=== PATIENT | male | born 1995 | race Caucasian/White ===

== ENCOUNTER 2024-07-15 13:22 | Emergency (ER) | payer MEDICAID, SELFPAY ==
--- NOTE | 2024-07-15 13:32 | EDNOTE_ITS ---
ED Medical Clearance RME/HPI General Stated complaint: MEDICAL CLEARANCE Time Seen by Provider: 07/15/24 13:27 Arrival date/time: 07/15/24 13:22 RME / HPI RME / HPI Narrative: 29-year-old male patient came in for evaluation regarding medical clearance. Patient was brought in today for medical clearance, to rule out tuberculosis. According to the patient has been having on and off cough with blood-streaked sputum for the last 3 months. Patient denies any weight loss. Denies any diaphoresis denies any night sweats denies any ill contacts denies any chest pain denies any fever denies any other complaints no medication was taken prior travel. Patient smoke marijuana. Related Information Allergies Allergy/AdvReac Type Severity Reaction Status Date / Time banana Allergy Severe Itching Verified 02/09/16 15:03 Review of Systems Review of Systems Narrative Review of Systems: Review of system reviewed and within normal limits except mentioned in HPI ED Exam Narrative Physical exam: VITAL SIGNS: Reviewed. GENERAL APPEARANCE: Alert and interactive, follows commands, no acute distress, HEAD AND FACE: Non-traumatic. ENT: PERRL, pink conjunctivitis, eyelid no trauma, Mucous membrane moist. NECK: Supple, nontender, no nuchal rigidity. CHEST: No tenderness, no crepitus, no paradoxical movement, no retractions. LUNGS: Clear, well ventilated, symmetric, no rales, no wheezing, no ronchi, no stridor, good breath sounds bilaterally. HEART: Regular rate, regular rhythm, no murmur, no gallops. ABDOMEN: Soft, positive bowel sounds, nondistended, no guarding, nontender, no rebound, no masses, RECTAL: Deferred. GENITAL: Deferred. NEUROLOGICAL: Gross motor function intact sensory function intact, Appropriate for age. MUSCULOSKELETAL: low back nontender, full range of motion. EXTREMITIES: Nontender, full range of motion. SKIN: Color pink, dry, no rash, no lacerations, no abrasions, no contusions. LYMPHATICS: Deferred. Course Quality Measures none Orders Category Date Time Status XR chest 2V Stat Exams 07/15/24 13:31 Ordered Medical Clearance MDM Narrative MDM Narrative:: 29-year-old male patient came in for evaluation regarding medical clearance. Patient was brought in today for medical clearance, to rule out tuberculosis. According to the patient has been having on and off cough with blood-streaked sputum for the last 3 months. Patient denies any weight loss. Denies any diaphoresis denies any night sweats denies any ill contacts denies any chest pain denies any fever denies any other complaints no medication was taken prior travel. Patient smoke marijuana. Patient eloped from the emergency room Patient data External records reviewed:: None Clinical information provided by:: patient and law enforcement Social determinants that could affect healthcare access:: none Patient has the following chronic illnesses:: None How is presenting disease/condition affected by chronic disease/condition?: no chronic disease Evaluation data The following diagnostics were reviewed and interpreted by me:: radiology exam(s) Lab and/or radiology exams considered but not ordered:: None Interpretation Summary: It was not done since patient eloped Medications / Prescriptions Medications or Prescriptions considered but not ordered:: None Medication administrations:: None Consultations Consultation(s) initiated? (list below): No Diagnosis Medical Clearance Differential Diagnosis: other (Medical clearance for incarceration, blood-tinged sputum) Most likely diagnosis given after review of the tests above:: Medical clearance for incarceration Admission Indicated Admission indicated?: not indicated Explain why admission is indicated or not indicated:: Elopement Admission Request Was there a request for admission?: No Disposition Plan Disposition Plan: other (specify) (Elopement) Discharge Plan Plan Patient Disposition: Elopement Prescriptions/Referrals Referrals: No Primary/Family,Physician [Primary Care Provider] - In 1 week Problem List Clinical Impression: Medical clearance for incarceration Patient/Caregiver Discharge Instructions Print Language: Mongolian
--- NOTE | 2024-07-15 17:05 | PC.NURSE ---
pt was seen leaving er lobby before triage
== END 2024-07-15 17:07 | disposition left against medical advice (07) ==
PROVIDERS: Emergency Provider Emergency Medicine
DX: Z02.89 Encounter for other administrative examinations (principal); R05.9 Cough, unspecified; Z53.29 Procedure and treatment not carried out because of patient's decision for other reasons
CPT/HCPCS: 99281